=== PATIENT | female | born 1940 | race Caucasian/White ===

== ENCOUNTER 2017-07-05 11:35 | Emergency (ER) | payer MEDICARE, OTHER ==
[2017-07-05 12:34] LABS: ADD MAN DIFF? NO
[2017-07-05 12:38] LABS: BASOPHILS % 0.3 % (0.0-2.0); EOSINOPHILS # 0.3 10^3/ul (0.0-0.5); EOSINOPHILS % 3.2 % (0.0-7.0); HEMATOCRIT 40.2 % (37.0-47.0); HEMOGLOBIN 12.7 g/dl (12.0-16.0); LYMPHOCYTES # 1.7 10^3/ul (0.8-2.9); LYMPHOCYTES % 18.1 % (15.0-51.0); MEAN CORPUSCULAR HEMOGLOBIN 31.4 pg (29.0-33.0); MEAN CORPUSCULAR HGB CONC 31.6 g/dl (32.0-37.0); MEAN CORPUSCULAR VOLUME 99.3 fl (82.0-101.0); MEAN PLATELET VOLUME 12.3 fl (7.4-10.4); MONOCYTE # 0.6 10^3/ul (0.3-0.9); MONOCYTES % 6.1 % (0.0-11.0); NEUTROPHIL # 6.6 10^3/ul (1.6-7.5); PLATELET COUNT 257 10^3/UL (140-415); RED BLOOD COUNT 4.05 10^6/ul (4.20-5.40); RED CELL DISTRIBUTION WIDTH 13.8 % (11.5-14.5)
[2017-07-05 12:38] LABS: WHITE BLOOD COUNT 9.1 10^3/ul (4.8-10.8)
[2017-07-05 12:56] LABS: PROTIME 13.3 Sec (11.9-14.9)
[2017-07-05 12:57] LABS: PARTIAL THROMBOPLASTIN TIME 32.3 Sec (25.0-35.0)
[2017-07-05 13:00] LABS: ALANINE AMINOTRANSFERASE 18 IU/L (13-69); ALBUMIN 3.9 g/dl (3.3-4.9); ALBUMIN/GLOBULIN RATIO 1.02; ALKALINE PHOSPHATASE 62 IU/L (42-121); ANION GAP 14 (8-16); ASPARTATE AMINO TRANSFERASE 21 IU/L (15-46); BILIRUBIN,INDIRECT 0.1 mg/dl (0-1.1); BILIRUBIN,TOTAL 0.1 mg/dl (0.2-1.3); BLOOD UREA NITROGEN 15 mg/dl (7-20); CALCIUM 9.7 mg/dl (8.4-10.2); CARBON DIOXIDE 26 mmol/L (21-31); CHLORIDE 106 mmol/L (97-110); CREATININE 0.65 mg/dl (0.44-1.00); GLUCOSE 175 mg/dl (70-220); POTASSIUM 4.7 mmol/L (3.5-5.1); SODIUM 141 mmol/L (135-144); TOTAL PROTEIN 7.7 g/dl (6.1-8.1)
[2017-07-05 13:12] LABS: B-TYPE NATRIURETIC PEPTIDE 431 PG/ML (0-450); TROPONIN-I < 0.012 ng/ml (0.00-0.12)
[2017-07-05] MEDS: HYDROCODONE/APAP (10/325) TAB PO (13:52)
== END 2017-07-05 17:10 | disposition home or self-care (01) ==
LOC: E/R 11:35
DX: K92.1 Melena (principal); R05 Cough; I50.9 Heart failure, unspecified; E11.22 Type 2 diabetes mellitus with diabetic chronic kidney disease; N18.9 Chronic kidney disease, unspecified; I12.9 Hypertensive chronic kidney disease with stage 1 through stage 4 chronic kidney disease, or unspecified chronic kidney disease; J45.909 Unspecified asthma, uncomplicated; E66.9 Obesity, unspecified; Z68.44 Body mass index [BMI] 60.0-69.9, adult
CPT/HCPCS: 36415; 71045; 80053; 83880; 84484; 85025; 85610; 85730; 86850; 86900; 86901; 93005; 99285-25

== ENCOUNTER 2017-08-19 09:15 | Inpatient (IN) | payer MEDICARE, OTHER ==
[2017-08-19] MEDS: ONDANSETRON 4 MG INJ IV (09:50)
[2017-08-19] MEDS: NITROGLYCERIN 2% 1 GM OINT PKT TD (09:51)
[2017-08-19] MEDS: ASPIRIN 81 MG TAB PO (09:51)
[2017-08-19 09:53] LABS: ADD MAN DIFF? NO
[2017-08-19 09:56] LABS: BASOPHILS % 0.2 % (0.0-2.0); EOSINOPHILS # 0.1 10^3/ul (0.0-0.5); EOSINOPHILS % 0.7 % (0.0-7.0); HEMATOCRIT 42.3 % (37.0-47.0); HEMOGLOBIN 13.7 g/dl (12.0-16.0); LYMPHOCYTES # 2.9 10^3/ul (0.8-2.9); LYMPHOCYTES % 17.2 % (15.0-51.0); MEAN CORPUSCULAR HEMOGLOBIN 31.3 pg (29.0-33.0); MEAN CORPUSCULAR HGB CONC 32.4 g/dl (32.0-37.0); MEAN CORPUSCULAR VOLUME 96.6 fl (82.0-101.0); MEAN PLATELET VOLUME 12.6 fl (7.4-10.4); MONOCYTE # 0.7 10^3/ul (0.3-0.9); MONOCYTES % 4.1 % (0.0-11.0); NEUTROPHIL # 12.8 10^3/ul (1.6-7.5); NEUTROPHILS % 77.3 % (39.0-77.0); PLATELET COUNT 275 10^3/UL (140-415); RED BLOOD COUNT 4.38 10^6/ul (4.20-5.40)
[2017-08-19 09:56] LABS: WHITE BLOOD COUNT 16.6 10^3/ul (4.8-10.8)
[2017-08-19] MEDS: SOD CHLORIDE 0.9% 500 ML IV (10:14)
[2017-08-19 10:15] LABS: ANION GAP 17 (8-16); BLOOD UREA NITROGEN 16 mg/dl (7-20); CALCIUM 9.6 mg/dl (8.4-10.2); CARBON DIOXIDE 28 mmol/L (21-31); CHLORIDE 104 mmol/L (97-110); CREATININE 0.62 mg/dl (0.44-1.00); GLUCOSE 120 mg/dl (70-220); POTASSIUM 4.1 mmol/L (3.5-5.1); SODIUM 145 mmol/L (135-144)
[2017-08-19] MEDS: morphine 4 MG/ML VIAL IV (10:19)
[2017-08-19 10:28] LABS: TROPONIN-I < 0.012 ng/ml (0.00-0.12)
[2017-08-19] MEDS ORDERED: ONDANSETRON 4 MG INJ IV (12:30)
[2017-08-19] MEDS: ACETAMINOPHEN 325 MG TAB PO (14:41)
[2017-08-19 16:31] LABS: CREATINE KINASE 21 IU/L (23-200)
[2017-08-19 16:42] LABS: CK-MB 0.42 ng/ml (0.0-2.4)
[2017-08-19 16:43] LABS: TROPONIN-I < 0.012 ng/ml (0.00-0.12)
[2017-08-19] MEDS: LORAZEPAM 1 MG TAB PO (18:02)
[2017-08-19] MEDS: HYDROCODONE/APAP (10/325) TAB PO (20:22)
[2017-08-19] MEDS ORDERED: PROMETHAZINE/DM (CUP) PO (22:30)
[2017-08-19] MEDS ORDERED: BISACODYL 10 MG SUPP PR (22:30)
[2017-08-19 22:47] LABS: CREATINE KINASE < 20 IU/L (23-200)
[2017-08-19 22:48] LABS: CK-MB 0.49 ng/ml (0.0-2.4)
[2017-08-19 23:03] LABS: HEMOGLOBIN 12.3 g/dl (12.0-16.0)
[2017-08-19 23:07] LABS: TROPONIN-I < 0.012 ng/ml (0.00-0.12)
[2017-08-19 23:18] LABS: MAGNESIUM 1.6 mg/dl (1.7-2.5)
[2017-08-19 23:19] LABS: IRON 89 ug/dl (35-150)
[2017-08-19 23:20] LABS: CHOLESTEROL 151 mg/dl (100-200)
[2017-08-19 23:20] LABS: CHOL/HDL RATIO 3.9 RATIO; HDL CHOLESTEROL 38 mg/dl (33-92); LDL CHOLESTEROL,CALCULATED 81 mg/dl; TRIGLYCERIDES 158 mg/dl (0-149)
[2017-08-19 23:27] LABS: HEMOGLOBIN A1C 6.1 % (0-5.9)
[2017-08-19 23:28] LABS: % IRON SATURATION 41 % SAT (22-52); TOTAL IRON BINDING CAPACITY 219 ug/dl (241-421)
[2017-08-19 23:50] LABS: THYROID STIMULATING HORMONE 0.961 MIU/L (0.465-4.680)
[2017-08-19 23:59] LABS: CARCINOEMBRYONIC ANTIGEN 4.3 ng/ml (0.0-5.0)
[2017-08-20] MEDS: HYDROCODONE/APAP (10/325) TAB PO ×4 (01:01→19:14)
[2017-08-20] MEDS: SALMETEROL/FLUTICASONE 250/50 INHA INH ×3 (02:06→20:56)
[2017-08-20] MEDS: MAGNESIUM SULFATE 2 GM/50 ML 50 ML IVPB (02:06)
[2017-08-20] MEDS ORDERED: HYDROCODONE/APAP (10/325) TAB PO (06:00)
[2017-08-20] MEDS: FUROSEMIDE 40 MG TAB PO (08:08)
[2017-08-20] MEDS: GABAPENTIN 300 MG CAP PO ×3 (08:08→20:56)
[2017-08-20] MEDS: ASPIRIN 81 MG TAB PO (08:09)
[2017-08-20] MEDS: metFORMIN 500 MG TAB PO ×2 (08:09→17:55)
[2017-08-20] MEDS: LINAGLIPTIN 5 MG TABLET PO (08:10)
[2017-08-20] MEDS: TIOTROPIUM 18 MCG CAPSULE INHA DEV INH (08:10)
[2017-08-20] MEDS: SOLIFENACIN 5 MG TAB PO (08:10)
[2017-08-20] MEDS: CLONIDINE 0.1 MG/24 HR PATCH TRANSDERM (10:30)
[2017-08-21] MEDS: MAGNESIUM SULFATE 2 GM/50 ML 50 ML IVPB (01:39)
[2017-08-21] MEDS: HYDROCODONE/APAP (10/325) TAB PO ×4 (01:40→23:05)
[2017-08-21 07:32] LABS: ADD MAN DIFF? NO
[2017-08-21 07:39] LABS: WHITE BLOOD COUNT 13.9 10^3/ul (4.8-10.8)
[2017-08-21 07:39] LABS: BASOPHIL # 0.1 10^3/ul (0.0-0.1); BASOPHILS % 0.4 % (0.0-2.0); EOSINOPHILS # 0.3 10^3/ul (0.0-0.5); EOSINOPHILS % 2.2 % (0.0-7.0); HEMATOCRIT 38.6 % (37.0-47.0); HEMOGLOBIN 12.4 g/dl (12.0-16.0); LYMPHOCYTES # 2.2 10^3/ul (0.8-2.9); LYMPHOCYTES % 16.1 % (15.0-51.0); MEAN CORPUSCULAR HEMOGLOBIN 31.3 pg (29.0-33.0); MEAN CORPUSCULAR HGB CONC 32.1 g/dl (32.0-37.0); MEAN CORPUSCULAR VOLUME 97.5 fl (82.0-101.0); MEAN PLATELET VOLUME 12.9 fl (7.4-10.4); MONOCYTE # 0.9 10^3/ul (0.3-0.9); MONOCYTES % 6.6 % (0.0-11.0); NEUTROPHIL # 10.3 10^3/ul (1.6-7.5); NEUTROPHILS % 74.2 % (39.0-77.0); PLATELET COUNT 257 10^3/UL (140-415); RED BLOOD COUNT 3.96 10^6/ul (4.20-5.40)
[2017-08-21 08:00] LABS: ALANINE AMINOTRANSFERASE 64 IU/L (13-69); ALBUMIN 3.6 g/dl (3.3-4.9); ALBUMIN/GLOBULIN RATIO 1.12; ALKALINE PHOSPHATASE 94 IU/L (42-121); ANION GAP 15 (8-16); ASPARTATE AMINO TRANSFERASE 86 IU/L (15-46); BILIRUBIN,INDIRECT 0.3 mg/dl (0-1.1); BILIRUBIN,TOTAL 0.3 mg/dl (0.2-1.3); BLOOD UREA NITROGEN 21 mg/dl (7-20); CALCIUM 9.1 mg/dl (8.4-10.2); CARBON DIOXIDE 27 mmol/L (21-31); CHLORIDE 105 mmol/L (97-110); CREATININE 0.78 mg/dl (0.44-1.00); GLUCOSE 107 mg/dl (70-220); POTASSIUM 3.6 mmol/L (3.5-5.1); SODIUM 143 mmol/L (135-144); TOTAL PROTEIN 6.8 g/dl (6.1-8.1)
[2017-08-21] MEDS: ASPIRIN 81 MG TAB PO (08:32)
[2017-08-21] MEDS: FUROSEMIDE 40 MG TAB PO (08:32)
[2017-08-21] MEDS: SALMETEROL/FLUTICASONE 250/50 INHA INH ×2 (08:32→20:21)
[2017-08-21] MEDS: SOLIFENACIN 5 MG TAB PO (08:32)
[2017-08-21] MEDS: TIOTROPIUM 18 MCG CAPSULE INHA DEV INH (08:32)
[2017-08-21] MEDS: GABAPENTIN 300 MG CAP PO ×3 (08:32→20:20)
[2017-08-21] MEDS: LINAGLIPTIN 5 MG TABLET PO (08:35)
[2017-08-21] MEDS: metFORMIN 500 MG TAB PO ×2 (08:35→18:14)
[2017-08-22] MEDS: MAGNESIUM SULFATE 2 GM/50 ML 50 ML IVPB (00:50)
[2017-08-22] MEDS: HYDROCODONE/APAP (10/325) TAB PO ×3 (06:54→18:59)
[2017-08-22] MEDS: FUROSEMIDE 40 MG TAB PO (08:56)
[2017-08-22] MEDS: ASPIRIN 81 MG TAB PO (08:56)
[2017-08-22] MEDS: LINAGLIPTIN 5 MG TABLET PO (08:56)
[2017-08-22] MEDS: SOLIFENACIN 5 MG TAB PO (08:56)
[2017-08-22] MEDS: GABAPENTIN 300 MG CAP PO ×3 (08:56→20:33)
[2017-08-22] MEDS: metFORMIN 500 MG TAB PO ×2 (08:56→18:59)
[2017-08-22] MEDS: TIOTROPIUM 18 MCG CAPSULE INHA DEV INH (08:57)
[2017-08-22] MEDS: SALMETEROL/FLUTICASONE 250/50 INHA INH ×2 (08:57→20:30)
[2017-08-22 14:38] LABS: AADO2 Arterial 15.3 mmHg (7.0-24.0); Allen Test ACCEPTAB; Arterial Base Excess 4.5 mmol/L (-3.0-3); Arterial Blood Gas Oxygen Sat 92.8 mmHG (95.0-100.0); Arterial COHb 0.8 % (0.0-3.0); Arterial Fraction of Oxyhgb 92.1 % (93.0-99.0); Arterial HCO3 31.3 mmol/L (22.0-26.0); Arterial MetHb 0 % (0.0-1.5); Arterial Total Hemglobin 13.2 g/dl (12.0-18.0); Arterial pCO2 56.3 mmhg (35-45); MODE ROOM AIR; Site Right Radial
[2017-08-22] MEDS: POLYETHYLENE GLYCOL 17 GM PACKET PO (20:30)
[2017-08-22] MEDS: FLECAINIDE 100 MG TAB PO (20:32)
[2017-08-22] MEDS: DIPHENHYDRAMINE 25 MG CAP PO (22:10)
[2017-08-23 00:50] LABS: ADD UMIC YES; UR ASCORBIC ACID NEGATIVE (NEGATIVE); UR BACTERIA FEW /HPF (NONE SEEN); UR BILIRUBIN (Dip) NEGATIVE (NEGATIVE); UR BLOOD (Dip) NEGATIVE (NEGATIVE); UR CLARITY CLEAR (CLEAR); UR COLOR YELLOW (YELLOW); UR GLUCOSE (Dip) NEGATIVE (NEGATIVE); UR KETONES (Dip) NEGATIVE (NEGATIVE); UR LEUKOCYTE ESTERASE (Dip) 1+ Leu/ul (NEGATIVE); UR NITRITE (Dip) NEGATIVE (NEGATIVE); UR RBC 2 /HPF (0-5); UR SPECIFIC GRAVITY (Dip) 1.013 (1.003-1.030); UR TOTAL PROTEIN (Dip) NEGATIVE (NEGATIVE); UR UROBILINOGEN (Dip) NEGATIVE (NEGATIVE); UR WBC 50 /HPF (0-5)
[2017-08-23] MEDS: HYDROCODONE/APAP (10/325) TAB PO ×4 (00:53→19:35)
[2017-08-23 06:26] LABS: ADD MAN DIFF? NO
[2017-08-23 06:29] LABS: BASOPHILS % 0.3 % (0.0-2.0); EOSINOPHILS # 0.4 10^3/ul (0.0-0.5); EOSINOPHILS % 2.9 % (0.0-7.0); HEMATOCRIT 39.4 % (37.0-47.0); HEMOGLOBIN 12.4 g/dl (12.0-16.0); LYMPHOCYTES # 2.4 10^3/ul (0.8-2.9); LYMPHOCYTES % 18.5 % (15.0-51.0); MEAN CORPUSCULAR HEMOGLOBIN 30.9 pg (29.0-33.0); MEAN CORPUSCULAR HGB CONC 31.5 g/dl (32.0-37.0); MEAN CORPUSCULAR VOLUME 98.3 fl (82.0-101.0); MEAN PLATELET VOLUME 12.7 fl (7.4-10.4); MONOCYTES % 7.9 % (0.0-11.0); NEUTROPHILS % 69.9 % (39.0-77.0); PLATELET COUNT 230 10^3/UL (140-415); RED BLOOD COUNT 4.01 10^6/ul (4.20-5.40); RED CELL DISTRIBUTION WIDTH 12.7 % (11.5-14.5)
[2017-08-23 06:29] LABS: WHITE BLOOD COUNT 12.9 10^3/ul (4.8-10.8)
[2017-08-23 07:19] LABS: ALANINE AMINOTRANSFERASE 59 IU/L (13-69); ALBUMIN 3.9 g/dl (3.3-4.9); ALBUMIN/GLOBULIN RATIO 1.14; ALKALINE PHOSPHATASE 95 IU/L (42-121); ANION GAP 18 (8-16); ASPARTATE AMINO TRANSFERASE 49 IU/L (15-46); BILIRUBIN,INDIRECT 0.1 mg/dl (0-1.1); BILIRUBIN,TOTAL 0.1 mg/dl (0.2-1.3); BLOOD UREA NITROGEN 22 mg/dl (7-20); CALCIUM 8.9 mg/dl (8.4-10.2); CARBON DIOXIDE 27 mmol/L (21-31); CHLORIDE 99 mmol/L (97-110); CREATININE 0.65 mg/dl (0.44-1.00); GLUCOSE 134 mg/dl (70-220); POTASSIUM 3.6 mmol/L (3.5-5.1); SODIUM 140 mmol/L (135-144); TOTAL PROTEIN 7.3 g/dl (6.1-8.1); URIC ACID 8.3 mg/dl (3.1-7.9)
[2017-08-23] MEDS: metFORMIN 500 MG TAB PO ×2 (07:43→17:51)
[2017-08-23] MEDS: SALMETEROL/FLUTICASONE 250/50 INHA INH ×2 (08:11→20:41)
[2017-08-23] MEDS: ASPIRIN 81 MG TAB PO (08:12)
[2017-08-23] MEDS: TIOTROPIUM 18 MCG CAPSULE INHA DEV INH (08:12)
[2017-08-23] MEDS: FUROSEMIDE 40 MG TAB PO (08:14)
[2017-08-23] MEDS: LINAGLIPTIN 5 MG TABLET PO (08:14)
[2017-08-23] MEDS: SOLIFENACIN 5 MG TAB PO (08:14)
[2017-08-23] MEDS: GABAPENTIN 300 MG CAP PO ×3 (08:14→20:42)
[2017-08-23] MEDS: POLYETHYLENE GLYCOL 17 GM PACKET PO ×2 (08:17→20:42)
[2017-08-23] MEDS: FLECAINIDE 100 MG TAB PO ×2 (08:19→20:42)
[2017-08-23] MEDS: LEVOFLOXACIN 750MG/D5W (PMX) 150 ML IVPB (23:00)
[2017-08-24] MEDS: HYDROCODONE/APAP (10/325) TAB PO ×3 (01:29→15:13)
[2017-08-24] MEDS: metFORMIN 500 MG TAB PO ×2 (07:55→18:12)
[2017-08-24] MEDS: TIOTROPIUM 18 MCG CAPSULE INHA DEV INH (09:00)
[2017-08-24] MEDS: FUROSEMIDE 40 MG TAB PO (09:19)
[2017-08-24] MEDS: SOLIFENACIN 5 MG TAB PO (09:19)
[2017-08-24] MEDS: GABAPENTIN 300 MG CAP PO ×3 (09:19→20:46)
[2017-08-24] MEDS: ASPIRIN 81 MG TAB PO (09:19)
[2017-08-24] MEDS: FLECAINIDE 100 MG TAB PO ×2 (09:19→20:46)
[2017-08-24] MEDS: LINAGLIPTIN 5 MG TABLET PO (09:19)
[2017-08-24] MEDS: SALMETEROL/FLUTICASONE 250/50 INHA INH ×2 (09:20→20:45)
[2017-08-24] MEDS: LEVOFLOXACIN 750MG/D5W (PMX) 150 ML IVPB (20:46)
[2017-08-24] MEDS: BETAMET NA PHOS/AC(6 MG/ML) 5ML INJ INJ (20:51)
[2017-08-24] MEDS: BUPIVACAINE 0.5%/EPI (SDV) 30 ML INJ INJ (20:52)
[2017-08-25] MEDS: HYDROCODONE/APAP (10/325) TAB PO ×4 (01:02→23:39)
[2017-08-25] MEDS: FUROSEMIDE 40 MG TAB PO (09:16)
[2017-08-25] MEDS: GABAPENTIN 300 MG CAP PO ×3 (09:16→21:16)
[2017-08-25] MEDS: FLECAINIDE 100 MG TAB PO ×2 (09:17→21:16)
[2017-08-25] MEDS: LINAGLIPTIN 5 MG TABLET PO (09:17)
[2017-08-25] MEDS: ASPIRIN 81 MG TAB PO (09:17)
[2017-08-25] MEDS: SOLIFENACIN 5 MG TAB PO (09:17)
[2017-08-25] MEDS: TIOTROPIUM 18 MCG CAPSULE INHA DEV INH (09:18)
[2017-08-25] MEDS: SALMETEROL/FLUTICASONE 250/50 INHA INH ×2 (09:18→21:17)
[2017-08-25] MEDS: metFORMIN 500 MG TAB PO ×2 (09:21→17:18)
[2017-08-25] MEDS: DOCUSATE SODIUM 250 MG CAP PO ×2 (12:49→21:15)
[2017-08-25] MEDS: NA PHOSPHATE/BIPHOS 133 ML ENEMA PR ×3 (12:50→22:00)
[2017-08-25] MEDS: POLYETHYLENE GLYCOL 17 GM PACKET PO ×2 (12:50→21:15)
[2017-08-25] MEDS: CIPROFLOXACIN HCL OTIC DROP 0.25 ML RIGHT EAR ×2 (12:50→21:16)
[2017-08-25] MEDS: LEVOFLOXACIN 750MG/D5W (PMX) 150 ML IVPB (21:16)
[2017-08-26] MEDS: HYDROCODONE/APAP (10/325) TAB PO ×3 (07:56→22:58)
[2017-08-26] MEDS: CIPROFLOXACIN HCL OTIC DROP 0.25 ML RIGHT EAR ×2 (09:07→21:48)
[2017-08-26] MEDS: LINAGLIPTIN 5 MG TABLET PO (09:07)
[2017-08-26] MEDS: DOCUSATE SODIUM 250 MG CAP PO ×2 (09:07→21:46)
[2017-08-26] MEDS: SOLIFENACIN 5 MG TAB PO (09:07)
[2017-08-26] MEDS: GABAPENTIN 300 MG CAP PO ×3 (09:07→21:46)
[2017-08-26] MEDS: ASPIRIN 81 MG TAB PO (09:08)
[2017-08-26] MEDS: FUROSEMIDE 40 MG TAB PO (09:08)
[2017-08-26] MEDS: POLYETHYLENE GLYCOL 17 GM PACKET PO ×2 (09:08→21:46)
[2017-08-26] MEDS: SALMETEROL/FLUTICASONE 250/50 INHA INH ×2 (09:09→21:46)
[2017-08-26] MEDS: metFORMIN 500 MG TAB PO ×2 (09:25→17:43)
[2017-08-26] MEDS: FLECAINIDE 100 MG TAB PO ×2 (09:54→21:46)
[2017-08-26] MEDS: TIOTROPIUM 18 MCG CAPSULE INHA DEV INH (11:01)
[2017-08-26] MEDS ORDERED: GLUCAGON 1 MG INJ IM (12:00)
[2017-08-26] MEDS ORDERED: GLUCOSE GEL 15 GRAM TUBE PO ×2 (12:00)
[2017-08-26] MEDS ORDERED: GLUCOSE GEL 15 GRAM TUBE BUCCAL (12:00)
[2017-08-26] MEDS ORDERED: DEXTROSE 50% 50 ML SYRINGE IV ×2 (12:00)
[2017-08-26] MEDS: INSULIN ASPART [NOVOLOG] 3 ML PEN SC ×2 (12:42→17:23)
[2017-08-26 12:46] LABS: AADO2 Arterial 27.5 mmHg (7.0-24.0); Allen Test ACCEPTAB; Arterial Base Excess 4.1 mmol/L (-3.0-3); Arterial Blood Gas Oxygen Sat 93.7 mmHG (95.0-100.0); Arterial COHb 0.9 % (0.0-3.0); Arterial Fraction of Oxyhgb 92.8 % (93.0-99.0); Arterial HCO3 29.2 mmol/L (22.0-26.0); Arterial MetHb 0.1 % (0.0-1.5); Arterial Total Hemglobin 13.1 g/dl (12.0-18.0); Arterial pCO2 45.5 mmhg (35-45); MODE ROOM AIR; Site Left Radial
[2017-08-26] MEDS: ACCU-CHEK XX (13:36)
[2017-08-26] MEDS: VANCOMYCIN 2 GM in SOD CHLORIDE 0.9% 500 ML IVPB (14:14)
[2017-08-27] MEDS: ACCU-CHEK XX (02:00)
[2017-08-27] MEDS: HYDROCODONE/APAP (10/325) TAB PO ×3 (05:20→19:00)
[2017-08-27] MEDS: INSULIN ASPART [NOVOLOG] 3 ML PEN SC ×4 (05:24→17:33)
[2017-08-27 05:46] LABS: ADD MAN DIFF? NO
[2017-08-27 05:51] LABS: BASOPHIL # 0.1 10^3/ul (0.0-0.1); BASOPHILS % 0.5 % (0.0-2.0); EOSINOPHILS # 0.2 10^3/ul (0.0-0.5); EOSINOPHILS % 1.4 % (0.0-7.0); HEMATOCRIT 38.4 % (37.0-47.0); HEMOGLOBIN 12.3 g/dl (12.0-16.0); LYMPHOCYTES # 1.6 10^3/ul (0.8-2.9); LYMPHOCYTES % 11.8 % (15.0-51.0); MEAN CORPUSCULAR HEMOGLOBIN 30.9 pg (29.0-33.0); MEAN CORPUSCULAR VOLUME 96.5 fl (82.0-101.0); MEAN PLATELET VOLUME 12.5 fl (7.4-10.4); MONOCYTE # 0.9 10^3/ul (0.3-0.9); MONOCYTES % 6.6 % (0.0-11.0); NEUTROPHIL # 10.5 10^3/ul (1.6-7.5); NEUTROPHILS % 79.1 % (39.0-77.0); PLATELET COUNT 240 10^3/UL (140-415); RED BLOOD COUNT 3.98 10^6/ul (4.20-5.40)
[2017-08-27 05:51] LABS: WHITE BLOOD COUNT 13.2 10^3/ul (4.8-10.8)
[2017-08-27 06:17] LABS: ALANINE AMINOTRANSFERASE 28 IU/L (13-69); ALBUMIN 3.9 g/dl (3.3-4.9); ALBUMIN/GLOBULIN RATIO 1.21; ALKALINE PHOSPHATASE 74 IU/L (42-121); ANION GAP 15 (8-16); ASPARTATE AMINO TRANSFERASE 15 IU/L (15-46); BILIRUBIN,INDIRECT 0.1 mg/dl (0-1.1); BILIRUBIN,TOTAL 0.1 mg/dl (0.2-1.3); BLOOD UREA NITROGEN 35 mg/dl (7-20); CALCIUM 9.7 mg/dl (8.4-10.2); CARBON DIOXIDE 32 mmol/L (21-31); CHLORIDE 99 mmol/L (97-110); CREATININE 0.81 mg/dl (0.44-1.00); GLUCOSE 114 mg/dl (70-220); POTASSIUM 3.4 mmol/L (3.5-5.1); SODIUM 143 mmol/L (135-144); TOTAL PROTEIN 7.1 g/dl (6.1-8.1)
[2017-08-27] MEDS: metFORMIN 500 MG TAB PO ×2 (07:43→17:33)
[2017-08-27] MEDS: POLYETHYLENE GLYCOL 17 GM PACKET PO (10:26)
[2017-08-27] MEDS: GABAPENTIN 300 MG CAP PO ×2 (10:26→14:56)
[2017-08-27] MEDS: TIOTROPIUM 18 MCG CAPSULE INHA DEV INH (10:26)
[2017-08-27] MEDS: SALMETEROL/FLUTICASONE 250/50 INHA INH (10:26)
[2017-08-27] MEDS: FUROSEMIDE 40 MG TAB PO (10:27)
[2017-08-27] MEDS: LINAGLIPTIN 5 MG TABLET PO (10:27)
[2017-08-27] MEDS: CIPROFLOXACIN HCL OTIC DROP 0.25 ML RIGHT EAR (10:27)
[2017-08-27] MEDS: ASPIRIN 81 MG TAB PO (10:27)
[2017-08-27] MEDS: FLECAINIDE 100 MG TAB PO (10:27)
[2017-08-27] MEDS: SOLIFENACIN 5 MG TAB PO (10:37)
[2017-08-27] MEDS: DOCUSATE SODIUM 250 MG CAP PO (10:37)
[2017-08-27] MEDS: CLONIDINE 0.1 MG/24 HR PATCH TRANSDERM (10:46)
[2017-08-27] MEDS: VANCOMYCIN 1.5 GM in SOD CHLORIDE 0.9% 250 ML IVPB (14:56)
[2017-08-28] MEDS ORDERED: AMOXICILLIN 500 MG CAP PO (09:00)
== END 2017-08-27 21:03 | DRG 292 ==
LOC: TEL 12:12 → PP2 08-26 18:25 → E/R 09:15 → TEL 23:55
PROVIDERS: Family Medicine
PROC: 4A033R1 Measurement of Arterial Saturation, Peripheral, Percutaneous Approach (ICD-10-PCS; principal; 2017-08-22)
DX: I11.0 Hypertensive heart disease with heart failure (principal); Z68.43 Body mass index [BMI] 50.0-59.9, adult; N39.0 Urinary tract infection, site not specified; E87.2 Acidosis; L76.34 Postprocedural seroma of skin and subcutaneous tissue following other procedure; I50.33 Acute on chronic diastolic (congestive) heart failure; I48.0 Paroxysmal atrial fibrillation; E66.01 Morbid (severe) obesity due to excess calories; Z74.01 Bed confinement status; D63.8 Anemia in other chronic diseases classified elsewhere; K59.00 Constipation, unspecified; J45.909 Unspecified asthma, uncomplicated; E11.22 Type 2 diabetes mellitus with diabetic chronic kidney disease; I13.0 Hypertensive heart and chronic kidney disease with heart failure and stage 1 through stage 4 chronic kidney disease, or unspecified chronic kidney disease; N18.9 Chronic kidney disease, unspecified; R33.9 Retention of urine, unspecified; I25.10 Atherosclerotic heart disease of native coronary artery without angina pectoris; Z86.718 Personal history of other venous thrombosis and embolism; E78.00 Pure hypercholesterolemia, unspecified; Z87.11 Personal history of peptic ulcer disease; E65 Localized adiposity; M54.2 Cervicalgia; M17.0 Bilateral primary osteoarthritis of knee; M16.0 Bilateral primary osteoarthritis of hip
CPT/HCPCS: 36415; 36600; 71045; 72020; 72040; 73560; 80048; 80053; 80061; 81001; 82378; 82550; 82553; 82803; 82962; 83036; 83540; 83735; 84443; 84484; 84560; 85018; 85025; 87081; 87086; 93005; 96374; 99285-25; G0378

== ENCOUNTER 2018-05-13 14:42 | Inpatient (IN) | payer MEDICARE, OTHER ==
[2018-05-13 15:40] LABS: ADD MAN DIFF? NO
[2018-05-13 15:42] LABS: WHITE BLOOD COUNT 13.2 10^3/ul (4.8-10.8)
[2018-05-13 15:42] LABS: BASOPHILS % 0.3 % (0.0-2.0); EOSINOPHILS # 0.2 10^3/ul (0.0-0.5); EOSINOPHILS % 1.8 % (0.0-7.0); HEMATOCRIT 40.6 % (37.0-47.0); HEMOGLOBIN 12.5 g/dl (12.0-16.0); LYMPHOCYTES # 1.7 10^3/ul (0.8-2.9); LYMPHOCYTES % 12.6 % (15.0-51.0); MEAN CORPUSCULAR HEMOGLOBIN 30.3 pg (29.0-33.0); MEAN CORPUSCULAR HGB CONC 30.8 g/dl (32.0-37.0); MEAN CORPUSCULAR VOLUME 98.5 fl (82.0-101.0); MEAN PLATELET VOLUME 12.2 fl (7.4-10.4); MONOCYTE # 0.7 10^3/ul (0.3-0.9); MONOCYTES % 5.5 % (0.0-11.0); NEUTROPHIL # 10.5 10^3/ul (1.6-7.5); NEUTROPHILS % 79.4 % (39.0-77.0); PLATELET COUNT 262 10^3/UL (140-415); RED BLOOD COUNT 4.12 10^6/ul (4.20-5.40); RED CELL DISTRIBUTION WIDTH 13.2 % (11.5-14.5)
[2018-05-13 16:00] LABS: ALANINE AMINOTRANSFERASE 8 IU/L (13-69); ALBUMIN 3.9 g/dl (3.3-4.9); ALBUMIN/GLOBULIN RATIO 0.97; ALKALINE PHOSPHATASE 78 IU/L (42-121); ANION GAP 11 (5-13); ASPARTATE AMINO TRANSFERASE 21 IU/L (15-46); BILIRUBIN,INDIRECT 0.3 mg/dl (0-1.1); BILIRUBIN,TOTAL 0.3 mg/dl (0.2-1.3); BLOOD UREA NITROGEN 20 mg/dl (7-20); CALCIUM 9.3 mg/dl (8.4-10.2); CARBON DIOXIDE 29 mmol/L (21-31); CHLORIDE 101 mmol/L (97-110); CREATININE 0.68 mg/dl (0.44-1.00); GLUCOSE 133 mg/dl (70-220); POTASSIUM 5.6 mmol/L (3.5-5.1); SODIUM 141 mmol/L (135-144); TOTAL PROTEIN 7.9 g/dl (6.1-8.1)
[2018-05-13] MEDS: HYDROCODONE/APAP (10/325) TAB PO (16:00)
[2018-05-13 16:12] LABS: B-TYPE NATRIURETIC PEPTIDE 1400 PG/ML (0-450); TROPONIN-I < 0.012 ng/ml (0.000-0.120)
[2018-05-13] MEDS: FUROSEMIDE 40 MG INJ IV (17:00)
[2018-05-13] MEDS ORDERED: ACETAMINOPHEN 325 MG TAB PO (18:00)
[2018-05-13] MEDS ORDERED: ONDANSETRON 4 MG INJ IV (18:00)
[2018-05-14] MEDS ORDERED: BISACODYL 10 MG SUPP PR (00:30)
[2018-05-14] MEDS ORDERED: ACETAMINOPHEN 325 MG TAB PO (01:00)
[2018-05-14] MEDS: HYDROCODONE/APAP (5/325) TAB PO ×2 (01:07)
[2018-05-14] MEDS: ACCU-CHEK XX (01:12)
[2018-05-14] MEDS ORDERED: DEXTROSE 50% 50 ML SYRINGE IV ×2 (01:30)
[2018-05-14] MEDS ORDERED: GLUCAGON 1 MG INJ IM (01:30)
[2018-05-14] MEDS ORDERED: GLUCOSE GEL 15 GRAM TUBE PO ×2 (01:30)
[2018-05-14] MEDS ORDERED: POLYETHYLENE GLYCOL 17 GM PACKET PO (01:30)
[2018-05-14] MEDS ORDERED: GLUCOSE GEL 15 GRAM TUBE BUCCAL (01:30)
[2018-05-14] MEDS: DIPHENHYDRAMINE 25 MG CAP PO ×2 (03:17→16:39)
[2018-05-14 06:25] LABS: ANION GAP 10 (5-13); BLOOD UREA NITROGEN 19 mg/dl (7-20); CALCIUM 9.5 mg/dl (8.4-10.2); CARBON DIOXIDE 30 mmol/L (21-31); CHLORIDE 101 mmol/L (97-110); CHOL/HDL RATIO 5.9 RATIO; CHOLESTEROL 191 mg/dl (100-200); CREATININE 0.73 mg/dl (0.44-1.00); GLUCOSE 141 mg/dl (70-220); HDL CHOLESTEROL 32 mg/dl (33-92); LDL CHOLESTEROL,CALCULATED 129 mg/dl; POTASSIUM 3.9 mmol/L (3.5-5.1); SODIUM 141 mmol/L (135-144); TRIGLYCERIDES 152 mg/dl (0-149)
[2018-05-14 06:26] LABS: HEMOGLOBIN A1C 6.2 % (0-5.9)
[2018-05-14 06:34] LABS: TROPONIN-I < 0.012 ng/ml (0.000-0.120)
[2018-05-14] MEDS: FUROSEMIDE 20 MG INJ IV ×2 (06:55→17:24)
[2018-05-14] MEDS: HYDROCODONE/APAP (10/325) TAB PO ×3 (07:48→20:27)
[2018-05-14] MEDS: INSULIN ASPART [NOVOLOG] 3 ML PEN SC ×4 (07:51→21:00)
[2018-05-14] MEDS ORDERED: POLYETHYLENE GLYCOL 3350 119 GM POWDER PO ×2 (09:00)
[2018-05-14] MEDS ORDERED: GABAPENTIN 300 MG CAP PO ×2 (09:00)
[2018-05-14] MEDS ORDERED: NON-FORMULARY/PATIENT OWN MED (Salmeterol Xinaf/Fluticasone* (Advair*) 1 INH) INH (09:00)
[2018-05-14] MEDS: FISH OIL 1,000 MG CAP PO (09:27)
[2018-05-14] MEDS: metFORMIN 500 MG TAB PO ×2 (09:27→17:28)
[2018-05-14] MEDS: LINAGLIPTIN 5 MG TABLET PO (09:27)
[2018-05-14] MEDS: CEPHALEXIN 500 MG CAP PO ×4 (09:28→20:27)
[2018-05-14] MEDS: ASPIRIN 81 MG TAB PO (09:28)
[2018-05-14] MEDS: SOLIFENACIN 5 MG TAB PO (09:29)
[2018-05-14] MEDS: NEBIVOLOL 5 MG TAB PO (09:32)
[2018-05-14] MEDS: TIOTROPIUM 18 MCG CAPSULE INHA DEV INH (09:38)
[2018-05-14] MEDS: FLUTICASONE/VILANTEROL 100-25 INH (09:41)
[2018-05-14] MEDS: ESCITALOPRAM 10 MG TAB PO (17:18)
[2018-05-14] MEDS: RIVAROXABAN 20 MG TABLET PO (17:19)
[2018-05-14] MEDS: MONTELUKAST 10 MG TAB PO (20:26)
[2018-05-14] MEDS: EZETIMIBE 10 MG TAB PO (20:27)
[2018-05-14] MEDS: NYSTATIN 30 GM POWDER BTL TOP (20:30)
[2018-05-15] MEDS: ACCU-CHEK XX (02:00)
[2018-05-15] MEDS: FUROSEMIDE 20 MG INJ IV (05:50)
[2018-05-15] MEDS: INSULIN ASPART [NOVOLOG] 3 ML PEN SC ×4 (08:00→20:58)
[2018-05-15] MEDS: SOLIFENACIN 5 MG TAB PO (09:00)
[2018-05-15] MEDS: CEPHALEXIN 500 MG CAP PO ×4 (09:29→17:03)
[2018-05-15] MEDS: FISH OIL 1,000 MG CAP PO (11:05)
[2018-05-15] MEDS: HYDROCODONE/APAP (10/325) TAB PO ×2 (11:06→20:57)
[2018-05-15] MEDS: NEBIVOLOL 5 MG TAB PO (11:07)
[2018-05-15] MEDS: ESCITALOPRAM 10 MG TAB PO (11:08)
[2018-05-15] MEDS: LINAGLIPTIN 5 MG TABLET PO (11:08)
[2018-05-15] MEDS: ASPIRIN 81 MG TAB PO (11:08)
[2018-05-15] MEDS: NYSTATIN 30 GM POWDER BTL TOP ×2 (11:09→20:47)
[2018-05-15] MEDS: TIOTROPIUM 18 MCG CAPSULE INHA DEV INH (11:12)
[2018-05-15] MEDS: metFORMIN 500 MG TAB PO ×2 (11:14→17:03)
[2018-05-15] MEDS: FLUTICASONE/VILANTEROL 100-25 INH (11:16)
[2018-05-15] MEDS: RIVAROXABAN 20 MG TABLET PO (17:03)
[2018-05-15] MEDS: EZETIMIBE 10 MG TAB PO (20:46)
[2018-05-15] MEDS: FUROSEMIDE 20 MG TAB PO (20:47)
[2018-05-15] MEDS: MONTELUKAST 10 MG TAB PO (20:47)
[2018-05-15] MEDS: FLUTICASONE 0.05% 16 GM NAS SPRAY NASAL (20:48)
[2018-05-15] MEDS: DIPHENHYDRAMINE 25 MG CAP PO (23:04)
[2018-05-16] MEDS: ACCU-CHEK XX (02:00)
[2018-05-16] MEDS: FUROSEMIDE 20 MG TAB PO ×2 (05:44→17:33)
[2018-05-16] MEDS: INSULIN ASPART [NOVOLOG] 3 ML PEN SC ×4 (08:00→20:18)
[2018-05-16] MEDS: LINAGLIPTIN 5 MG TABLET PO (08:48)
[2018-05-16] MEDS: CEPHALEXIN 500 MG CAP PO ×4 (08:48→20:01)
[2018-05-16] MEDS: SOLIFENACIN 5 MG TAB PO (08:49)
[2018-05-16] MEDS: NEBIVOLOL 5 MG TAB PO (08:50)
[2018-05-16] MEDS: FISH OIL 1,000 MG CAP PO (08:50)
[2018-05-16] MEDS: ASPIRIN 81 MG TAB PO (08:51)
[2018-05-16] MEDS: ESCITALOPRAM 10 MG TAB PO (08:51)
[2018-05-16] MEDS: FLUTICASONE/VILANTEROL 100-25 INH (08:52)
[2018-05-16] MEDS: FLUTICASONE 0.05% 16 GM NAS SPRAY NASAL (08:52)
[2018-05-16] MEDS: TIOTROPIUM 18 MCG CAPSULE INHA DEV INH (08:52)
[2018-05-16] MEDS: NYSTATIN 30 GM POWDER BTL TOP ×2 (09:00→20:03)
[2018-05-16] MEDS: metFORMIN 500 MG TAB PO ×2 (11:43→17:39)
[2018-05-16] MEDS: HYDROCODONE/APAP (10/325) TAB PO ×2 (12:02→17:39)
[2018-05-16 17:18] LABS: ADD MAN DIFF? NO
[2018-05-16 17:23] LABS: BASOPHIL # 0.1 10^3/ul (0.0-0.1); BASOPHILS % 0.4 % (0.0-2.0); EOSINOPHILS # 0.3 10^3/ul (0.0-0.5); HEMATOCRIT 41.1 % (37.0-47.0); HEMOGLOBIN 12.5 g/dl (12.0-16.0); LYMPHOCYTES # 2.5 10^3/ul (0.8-2.9); MEAN CORPUSCULAR HEMOGLOBIN 29.5 pg (29.0-33.0); MEAN CORPUSCULAR HGB CONC 30.4 g/dl (32.0-37.0); MEAN CORPUSCULAR VOLUME 96.9 fl (82.0-101.0); MEAN PLATELET VOLUME 12.5 fl (7.4-10.4); MONOCYTE # 0.8 10^3/ul (0.3-0.9); MONOCYTES % 6.7 % (0.0-11.0); NEUTROPHIL # 8.8 10^3/ul (1.6-7.5); NEUTROPHILS % 70.3 % (39.0-77.0); PLATELET COUNT 298 10^3/UL (140-415); RED BLOOD COUNT 4.24 10^6/ul (4.20-5.40); RED CELL DISTRIBUTION WIDTH 12.8 % (11.5-14.5)
[2018-05-16 17:23] LABS: WHITE BLOOD COUNT 12.6 10^3/ul (4.8-10.8)
[2018-05-16] MEDS: RIVAROXABAN 20 MG TABLET PO (17:32)
[2018-05-16 17:49] LABS: ANION GAP 11 (5-13); BLOOD UREA NITROGEN 27 mg/dl (7-20); CALCIUM 9.1 mg/dl (8.4-10.2); CARBON DIOXIDE 32 mmol/L (21-31); CHLORIDE 97 mmol/L (97-110); CREATININE 0.87 mg/dl (0.44-1.00); GLUCOSE 119 mg/dl (70-220); POTASSIUM 4.2 mmol/L (3.5-5.1); SODIUM 140 mmol/L (135-144)
[2018-05-16 18:51] LABS: ADD UMIC YES; UR ASCORBIC ACID NEGATIVE (NEGATIVE); UR BACTERIA FEW /HPF (NONE SEEN); UR BILIRUBIN (Dip) NEGATIVE (NEGATIVE); UR BLOOD (Dip) 3+ mg/dL (NEGATIVE); UR CLARITY SLIGHTLY CLOUDY (CLEAR); UR COLOR YELLOW (YELLOW); UR GLUCOSE (Dip) NEGATIVE (NEGATIVE); UR KETONES (Dip) NEGATIVE (NEGATIVE); UR LEUKOCYTE ESTERASE (Dip) NEGATIVE Leu/ul (NEGATIVE); UR MUCUS FEW /HPF (NONE SEEN); UR NITRITE (Dip) NEGATIVE (NEGATIVE); UR RBC > 182 /HPF (0-5); UR SPECIFIC GRAVITY (Dip) 1.015 (1.003-1.030); UR TOTAL PROTEIN (Dip) NEGATIVE (NEGATIVE); UR UROBILINOGEN (Dip) NEGATIVE (NEGATIVE); UR WBC 18 /HPF (0-5)
[2018-05-16] MEDS: MONTELUKAST 10 MG TAB PO (20:01)
[2018-05-16] MEDS: EZETIMIBE 10 MG TAB PO (20:01)
[2018-05-16] MEDS ORDERED: VITAMIN A & D 5 GM OINT PACKET TOP (22:36)
[2018-05-17] MEDS: HYDROCODONE/APAP (10/325) TAB PO ×5 (00:12→23:48)
[2018-05-17] MEDS: DIPHENHYDRAMINE 25 MG CAP PO ×2 (00:15→23:48)
[2018-05-17] MEDS: ACCU-CHEK XX (02:00)
[2018-05-17 05:42] LABS: ADD MAN DIFF? NO
[2018-05-17 05:46] LABS: WHITE BLOOD COUNT 11.8 10^3/ul (4.8-10.8)
[2018-05-17 05:46] LABS: BASOPHIL # 0.1 10^3/ul (0.0-0.1); BASOPHILS % 0.4 % (0.0-2.0); EOSINOPHILS # 0.3 10^3/ul (0.0-0.5); EOSINOPHILS % 2.6 % (0.0-7.0); HEMATOCRIT 39.8 % (37.0-47.0); HEMOGLOBIN 12.2 g/dl (12.0-16.0); LYMPHOCYTES # 2.7 10^3/ul (0.8-2.9); MEAN CORPUSCULAR HGB CONC 30.7 g/dl (32.0-37.0); MEAN CORPUSCULAR VOLUME 97.8 fl (82.0-101.0); MEAN PLATELET VOLUME 12.4 fl (7.4-10.4); MONOCYTE # 0.9 10^3/ul (0.3-0.9); MONOCYTES % 7.8 % (0.0-11.0); NEUTROPHIL # 7.7 10^3/ul (1.6-7.5); NEUTROPHILS % 65.7 % (39.0-77.0); PLATELET COUNT 267 10^3/UL (140-415); RED BLOOD COUNT 4.07 10^6/ul (4.20-5.40); RED CELL DISTRIBUTION WIDTH 12.6 % (11.5-14.5)
[2018-05-17] MEDS: FUROSEMIDE 20 MG TAB PO ×2 (06:05→18:06)
[2018-05-17 06:16] LABS: BLOOD UREA NITROGEN 30 mg/dl (7-20); CALCIUM 9.1 mg/dl (8.4-10.2); CARBON DIOXIDE 32 mmol/L (21-31); CHLORIDE 101 mmol/L (97-110); CREATININE 0.87 mg/dl (0.44-1.00); GLUCOSE 118 mg/dl (70-220)
[2018-05-17] MEDS: INSULIN ASPART [NOVOLOG] 3 ML PEN SC ×4 (07:43→20:17)
[2018-05-17 08:07] LABS: ANION GAP 7 (5-13); POTASSIUM 3.9 mmol/L (3.5-5.1); SODIUM 140 mmol/L (135-144)
[2018-05-17] MEDS: ESCITALOPRAM 10 MG TAB PO (09:16)
[2018-05-17] MEDS: FISH OIL 1,000 MG CAP PO (09:16)
[2018-05-17] MEDS: ASPIRIN 81 MG TAB PO (09:16)
[2018-05-17] MEDS: LINAGLIPTIN 5 MG TABLET PO (09:16)
[2018-05-17] MEDS: SOLIFENACIN 5 MG TAB PO (09:16)
[2018-05-17] MEDS: CEPHALEXIN 500 MG CAP PO ×2 (09:17→13:15)
[2018-05-17] MEDS: NEBIVOLOL 5 MG TAB PO (09:17)
[2018-05-17] MEDS: FLUTICASONE 0.05% 16 GM NAS SPRAY NASAL (09:18)
[2018-05-17] MEDS: FLUTICASONE/VILANTEROL 100-25 INH (09:18)
[2018-05-17] MEDS: TIOTROPIUM 18 MCG CAPSULE INHA DEV INH (09:18)
[2018-05-17] MEDS: NYSTATIN 30 GM POWDER BTL TOP ×2 (09:19→21:03)
[2018-05-17] MEDS: metFORMIN 500 MG TAB PO ×2 (09:19→18:06)
[2018-05-17 16:15] LABS: ADD MAN DIFF? NO
[2018-05-17 16:17] LABS: BASOPHIL # 0.1 10^3/ul (0.0-0.1); BASOPHILS % 0.4 % (0.0-2.0); EOSINOPHILS # 0.3 10^3/ul (0.0-0.5); EOSINOPHILS % 2.5 % (0.0-7.0); HEMATOCRIT 42.3 % (37.0-47.0); HEMOGLOBIN 12.8 g/dl (12.0-16.0); LYMPHOCYTES # 2.5 10^3/ul (0.8-2.9); LYMPHOCYTES % 20.8 % (15.0-51.0); MEAN CORPUSCULAR HEMOGLOBIN 29.8 pg (29.0-33.0); MEAN CORPUSCULAR HGB CONC 30.3 g/dl (32.0-37.0); MEAN CORPUSCULAR VOLUME 98.6 fl (82.0-101.0); MEAN PLATELET VOLUME 12.1 fl (7.4-10.4); MONOCYTE # 0.8 10^3/ul (0.3-0.9); MONOCYTES % 6.9 % (0.0-11.0); NEUTROPHIL # 8.2 10^3/ul (1.6-7.5); NEUTROPHILS % 68.9 % (39.0-77.0); PLATELET COUNT 296 10^3/UL (140-415); RED BLOOD COUNT 4.29 10^6/ul (4.20-5.40); RED CELL DISTRIBUTION WIDTH 12.7 % (11.5-14.5)
[2018-05-17] MEDS: RIVAROXABAN 20 MG TABLET PO (18:06)
[2018-05-17] MEDS: EZETIMIBE 10 MG TAB PO (20:17)
[2018-05-17] MEDS: MONTELUKAST 10 MG TAB PO (20:17)
[2018-05-17] MEDS: CEFTRIAXONE 1 GM/50 ML (PMX) 50 ML IVPB (20:17)
[2018-05-18] MEDS ORDERED: VITAMIN A & D 5 GM OINT PACKET TOP (01:29)
[2018-05-18] MEDS: ACCU-CHEK XX (02:00)
[2018-05-18] MEDS: HYDROCODONE/APAP (10/325) TAB PO ×4 (03:04→20:17)
[2018-05-18] MEDS: FUROSEMIDE 20 MG TAB PO ×2 (06:15→17:22)
[2018-05-18] MEDS: LIDOCAINE 1% (MPF) 5 ML VIAL SC (06:15)
[2018-05-18 06:29] LABS: ADD MAN DIFF? NO
[2018-05-18 06:44] LABS: BASOPHILS % 0.4 % (0.0-2.0); EOSINOPHILS # 0.3 10^3/ul (0.0-0.5); EOSINOPHILS % 3.2 % (0.0-7.0); HEMATOCRIT 39.7 % (37.0-47.0); HEMOGLOBIN 12.1 g/dl (12.0-16.0); LYMPHOCYTES # 2.3 10^3/ul (0.8-2.9); LYMPHOCYTES % 21.6 % (15.0-51.0); MEAN CORPUSCULAR HGB CONC 30.5 g/dl (32.0-37.0); MEAN CORPUSCULAR VOLUME 98.3 fl (82.0-101.0); MEAN PLATELET VOLUME 12.9 fl (7.4-10.4); MONOCYTE # 0.8 10^3/ul (0.3-0.9); MONOCYTES % 7.3 % (0.0-11.0); NEUTROPHIL # 7.2 10^3/ul (1.6-7.5); NEUTROPHILS % 67.1 % (39.0-77.0); PLATELET COUNT 251 10^3/UL (140-415); RED BLOOD COUNT 4.04 10^6/ul (4.20-5.40); RED CELL DISTRIBUTION WIDTH 12.4 % (11.5-14.5)
[2018-05-18 06:44] LABS: WHITE BLOOD COUNT 10.7 10^3/ul (4.8-10.8)
[2018-05-18 07:15] LABS: ANION GAP 10 (5-13); BLOOD UREA NITROGEN 28 mg/dl (7-20); CALCIUM 9.2 mg/dl (8.4-10.2); CARBON DIOXIDE 35 mmol/L (21-31); CHLORIDE 97 mmol/L (97-110); CREATININE 0.91 mg/dl (0.44-1.00); GLUCOSE 132 mg/dl (70-220); POTASSIUM 4.1 mmol/L (3.5-5.1); SODIUM 142 mmol/L (135-144)
[2018-05-18] MEDS: INSULIN ASPART [NOVOLOG] 3 ML PEN SC ×4 (08:00→20:22)
[2018-05-18] MEDS: LINAGLIPTIN 5 MG TABLET PO (08:59)
[2018-05-18] MEDS: FISH OIL 1,000 MG CAP PO (08:59)
[2018-05-18] MEDS: ESCITALOPRAM 10 MG TAB PO (09:00)
[2018-05-18] MEDS: metFORMIN 500 MG TAB PO ×2 (09:00→17:22)
[2018-05-18] MEDS: NEBIVOLOL 5 MG TAB PO (09:00)
[2018-05-18] MEDS: ASPIRIN 81 MG TAB PO (09:01)
[2018-05-18] MEDS: TIOTROPIUM 18 MCG CAPSULE INHA DEV INH (09:01)
[2018-05-18] MEDS: SOLIFENACIN 5 MG TAB PO (09:01)
[2018-05-18] MEDS: FLUTICASONE 0.05% 16 GM NAS SPRAY NASAL (09:01)
[2018-05-18] MEDS: FLUTICASONE/VILANTEROL 100-25 INH (09:02)
[2018-05-18] MEDS: NYSTATIN 30 GM POWDER BTL TOP ×2 (09:02→20:28)
[2018-05-18] MEDS: RIVAROXABAN 20 MG TABLET PO (17:22)
[2018-05-18] MEDS: CEFTRIAXONE 1 GM/50 ML (PMX) 50 ML IVPB (18:50)
[2018-05-18] MEDS: MONTELUKAST 10 MG TAB PO (20:16)
[2018-05-18] MEDS: EZETIMIBE 10 MG TAB PO (20:16)
[2018-05-18] MEDS: DIPHENHYDRAMINE 25 MG CAP PO (22:25)
[2018-05-19] MEDS: ACCU-CHEK XX (02:00)
[2018-05-19] MEDS: FUROSEMIDE 20 MG TAB PO ×2 (06:28→19:03)
[2018-05-19] MEDS: INSULIN ASPART [NOVOLOG] 3 ML PEN SC ×5 (08:00→21:00)
[2018-05-19] MEDS: TIOTROPIUM 18 MCG CAPSULE INHA DEV INH (11:00)
[2018-05-19] MEDS: HYDROCODONE/APAP (10/325) TAB PO ×2 (11:21→19:08)
[2018-05-19] MEDS: SOLIFENACIN 5 MG TAB PO (11:21)
[2018-05-19] MEDS: metFORMIN 500 MG TAB PO ×2 (11:22→19:02)
[2018-05-19] MEDS: FISH OIL 1,000 MG CAP PO (11:22)
[2018-05-19] MEDS: NEBIVOLOL 5 MG TAB PO (11:23)
[2018-05-19] MEDS: ESCITALOPRAM 10 MG TAB PO (11:24)
[2018-05-19] MEDS: LINAGLIPTIN 5 MG TABLET PO (11:25)
[2018-05-19] MEDS: NYSTATIN 30 GM POWDER BTL TOP ×2 (11:25→22:02)
[2018-05-19] MEDS: FLUTICASONE/VILANTEROL 100-25 INH (11:26)
[2018-05-19] MEDS: FLUTICASONE 0.05% 16 GM NAS SPRAY NASAL (11:39)
[2018-05-19] MEDS: ASPIRIN 81 MG TAB PO (11:45)
[2018-05-19] MEDS: RIVAROXABAN 20 MG TABLET PO (19:04)
[2018-05-19] MEDS: CEFTRIAXONE 1 GM/50 ML (PMX) 50 ML IVPB (20:03)
[2018-05-19] MEDS ORDERED: SODIUM CHLORIDE 1 GM TAB PO (21:30)
[2018-05-19] MEDS: MONTELUKAST 10 MG TAB PO (22:01)
[2018-05-19] MEDS: EZETIMIBE 10 MG TAB PO (22:02)
[2018-05-20] MEDS: DIPHENHYDRAMINE 25 MG CAP PO (00:26)
[2018-05-20] MEDS: HYDROCODONE/APAP (10/325) TAB PO ×2 (00:27→16:44)
[2018-05-20] MEDS: ACCU-CHEK XX ×2 (02:00→21:57)
[2018-05-20] MEDS: FUROSEMIDE 20 MG TAB PO ×2 (06:12→17:30)
[2018-05-20] MEDS: INSULIN ASPART [NOVOLOG] 3 ML PEN SC ×4 (07:48→21:00)
[2018-05-20] MEDS: metFORMIN 500 MG TAB PO ×2 (07:54→17:28)
[2018-05-20] MEDS: LINAGLIPTIN 5 MG TABLET PO (08:41)
[2018-05-20] MEDS: ESCITALOPRAM 10 MG TAB PO (08:41)
[2018-05-20] MEDS: TIOTROPIUM 18 MCG CAPSULE INHA DEV INH (08:41)
[2018-05-20] MEDS: FLUTICASONE/VILANTEROL 100-25 INH (08:42)
[2018-05-20] MEDS: NEBIVOLOL 5 MG TAB PO (08:43)
[2018-05-20] MEDS: FISH OIL 1,000 MG CAP PO (08:43)
[2018-05-20] MEDS: NYSTATIN 30 GM POWDER BTL TOP ×2 (08:43→22:06)
[2018-05-20] MEDS: FLUTICASONE 0.05% 16 GM NAS SPRAY NASAL (08:43)
[2018-05-20] MEDS: ASPIRIN 81 MG TAB PO (08:44)
[2018-05-20] MEDS: SOLIFENACIN 5 MG TAB PO (08:44)
[2018-05-20] MEDS ORDERED: RIVAROXABAN 10 MG TABLET (17:27)
[2018-05-20] MEDS: RIVAROXABAN 20 MG TABLET PO (17:50)
[2018-05-20] MEDS: MONTELUKAST 10 MG TAB PO (20:45)
[2018-05-20] MEDS: EZETIMIBE 10 MG TAB PO (22:06)
[2018-05-21] MEDS: HYDROCODONE/APAP (10/325) TAB PO ×4 (01:11→19:59)
[2018-05-21] MEDS: DIPHENHYDRAMINE 25 MG CAP PO (01:58)
[2018-05-21] MEDS: FUROSEMIDE 20 MG TAB PO ×2 (05:42→18:09)
[2018-05-21] MEDS: INSULIN ASPART [NOVOLOG] 3 ML PEN SC ×3 (07:50→18:13)
[2018-05-21] MEDS: ASPIRIN 81 MG TAB PO (08:40)
[2018-05-21] MEDS: metFORMIN 500 MG TAB PO ×2 (08:40→18:10)
[2018-05-21] MEDS: NEBIVOLOL 5 MG TAB PO (08:41)
[2018-05-21] MEDS: ESCITALOPRAM 10 MG TAB PO (08:41)
[2018-05-21] MEDS: SOLIFENACIN 5 MG TAB PO (08:41)
[2018-05-21] MEDS: FISH OIL 1,000 MG CAP PO (08:41)
[2018-05-21] MEDS: LINAGLIPTIN 5 MG TABLET PO (08:41)
[2018-05-21] MEDS: TIOTROPIUM 18 MCG CAPSULE INHA DEV INH (08:41)
[2018-05-21] MEDS: FLUTICASONE 0.05% 16 GM NAS SPRAY NASAL (08:42)
[2018-05-21] MEDS: FLUTICASONE/VILANTEROL 100-25 INH (08:42)
[2018-05-21] MEDS: NYSTATIN 30 GM POWDER BTL TOP (08:43)
[2018-05-21] MEDS: RIVAROXABAN 20 MG TABLET PO (19:08)
[2018-05-21] MEDS: MONTELUKAST 10 MG TAB PO (19:46)
== END 2018-05-21 21:00 | disposition home or self-care (01) | DRG 292 ==
LOC: 5EC 05-20 17:13 → MS1 05-20 17:22 → E/R 14:42 → 6WM 17:57
DX: I11.0 Hypertensive heart disease with heart failure (principal); Z68.44 Body mass index [BMI] 60.0-69.9, adult; E66.01 Morbid (severe) obesity due to excess calories; E11.9 Type 2 diabetes mellitus without complications; I50.9 Heart failure, unspecified; I25.10 Atherosclerotic heart disease of native coronary artery without angina pectoris; F32.9 Major depressive disorder, single episode, unspecified; J45.909 Unspecified asthma, uncomplicated; Z79.4 Long term (current) use of insulin; Z79.82 Long term (current) use of aspirin; Z90.49 Acquired absence of other specified parts of digestive tract
CPT/HCPCS: 36415; 71045; 80048; 80053; 80061; 81001; 82962; 83036; 83880; 84484; 85025; 87086; 93005; 93306; 96374; 99285-25; G0378